=== PATIENT | female | born 1990 | race Two or more races ===

== ENCOUNTER 2016-03-31 16:50 | Emergency (ER) | payer OTHER ==
[2016-03-31 17:00] VITALS: RESP 16; TEMP 98.2
[2016-03-31] MEDS ORDERED: ONDANSETRON 4 MG/2 ML VIAL IVP ONE (17:02)
[2016-03-31] MEDS ORDERED: FAMOTIDINE 20 MG/NACL 50 ML IV ONE (17:11)
--- NOTE | 2016-03-31 17:15 | EDPHY ---
H & P Time Seen by Provider: 03/31/16 16:56 HPI/ROS: CHIEF COMPLAINT: Hives, syncope, vomiting HISTORY OF PRESENT ILLNESS: 25-year-old female presents to the emergency department by private vehicle complaining of pruritic rash and having a syncopal episode. The patient states around 330 this afternoon she developed a diffuse pruritic rash that she describes as hives. She noted that the rash was extremely itchy. She took 25 mg of Benadryl p. o. and 1 Zyrtec shortly afterwards and had a syncopal episode. Her roommate was present who did not witness any seizure activity. When the patient came to she felt very nauseous and vomited. She still feels slightly nauseous. Denies dysphagia. There is no reported trauma or fall. No reports of head injury. No neck or back pain. No chest pain or difficulty breathing. She does note that the rash is not nearly as itchy since taking the Benadryl and Zyrtec. She states that she did have shrimp for lunch around 1:00 p.m. and has never had a probable shellfish in the past. She cannot think of any other known exposure. She does not take any prescribed medication. Last menstrual period was 2 weeks ago. REVIEW OF SYSTEMS: Constitutional: No fever, no chills. Eyes: No double or blurry vision. ENT: No sore throat. Respiratory: No cough, no shortness of breath. Cardiac: No chest pain. Gastrointestinal: Nausea, vomiting. No abdominal pain or diarrhea. Genitourinary: No dysuria. Musculoskeletal: No neck or back pain. Skin: Pruritic rash as above Neurological: No headache. Past Medical/Surgical History: Negative Social History: student support advisor at [employer] Smoking Status: Never smoked Physical Exam: General Appearance: Alert, no distress. 36.8, 96% on room air. No apparent distress. 136/75 Eyes: Pupils equal and round. Extraocular motions are all intact. ENT: Mouth: Mucous membranes moist. No posterior pharyngeal injection or swelling noted. No uvular swelling. No muffled voice. Respiratory: No wheezing, rhonchi, or rales, lungs are clear to auscultation. Cardiovascular: Regular rate and rhythm. Gastrointestinal: Abdomen is soft and nontender, no masses, no rebound or guarding, bowel sounds normal. Neurological: Alert and oriented x 3, cranial nerves II through XII grossly intact Skin: Diffuse erythematous macular papular rash noted diffusely to upper extremities, lower extremities, chest, abdomen, back. Swelling noted to the helix of both ears. Musculoskeletal: Nontender to palpate along the cervical, thoracic or lumbar spine. Neck is supple. Extremities: Full range of motion and no peripheral edema. Psychiatric: Patient is oriented X 3, there is no agitation. Constitutional: Initial Vital Signs Temperature (C) 36.8 C 03/31/16 16:57 Heart Rate 75 03/31/16 16:57 Respiratory Rate 16 03/31/16 16:57 Blood Pressure 136/75 H 03/31/16 16:57 O2 Sat (%) 96 03/31/16 16:57 O2 Delivery Mode Room Air Allergies/Adverse Reactions: No Known Allergies Allergy (Unverified 03/31/16 16:57) Home Medications: Medication Instructions Recorded Bcp 03/31/16 EPINEPHRINE [EPIPEN] 0.3 mg SC DAILY #2 03/31/16 Valacyclovir 03/31/16 predniSONE 60 mg PO DAILY 3 Days 03/31/16 Medical Decision Making - Diagnostics EKG Interpretation: EKG reveals normal sinus rhythm. This was reviewed by Dr. Valdes. See interpretation in trace master. ED Course/Re-evaluation: 25-year-old female presents to the emergency department after developing pruritic rash, having a syncopal episode and then vomiting. Patient still feels slightly nauseous. She had an IV established and was given 25 mg of IV Benadryl, 20 mg of IV Pepcid, and 4 mg of Zofran IV. She was also given IV normal saline. Laboratory studies were within normal limits. EKG was unremarkable. The patient does not have any acute respiratory distress. She has no airway involvement. I do not think epinephrine is indicated. The patient was observed in the emergency department over the next 2 hours. Her rash had completely resolved. The swelling around the helix of both ears have improved. The patient is feeling comfortable being discharged home. She was given prednisone p. o. in the emergency department and prescription to fill for additional prednisone. She was also sent home with EpiPen. She was encouraged to follow up with primary care provider to discuss follow up with staff certified nurse midwife. Differential Diagnosis: Syncope including but not limited to vasovagal syncope, arrhythmia, dehydration , and blood loss. - Data Points Laboratory Results: Laboratory Results 03/31/16 17:10 03/31/16 17:10 03/31/16 17:10 WBC 10.81 H 10^3/uL (3.80-9.50) RBC 5.35 H 10^6/uL (4.18-5.33) Hgb 17.2 H g/dL (12.6-16.3) Hct 49.3 H % (38.0-47.0) MCV 92.1 fL (81.5-99.8) MCH 32.1 pg (27.9-34.1) MCHC 34.9 g/dL (32.4-36.7) RDW 12.2 % (11.5-15.2) Plt Count 357 10^3/uL (150-400) MPV 11.3 fL (8.7-11.7) Neut % (Auto) 63.1 % (39.3-74.2) Lymph % (Auto) 29.2 % (15.0-45.0) [place] % (Auto) 6.4 % (4.5-13.0) Eos % (Auto) 0.6 % (0.6-7.6) Baso % (Auto) 0.4 % (0.3-1.7) Nucleat RBC Rel Count 0.0 % (0.0-0.2) Absolute Neuts (auto) 6.83 H 10^3/uL (1.70-6.50) Absolute Lymphs (auto) 3.16 H 10^3/uL (1.00-3.00) Absolute Monos (auto) 0.69 10^3/uL (0.30-0.80) Absolute Eos (auto) 0.06 10^3/uL (0.03-0.40) Absolute Basos (auto) 0.04 10^3/uL (0.02-0.10) Absolute Nucleated RBC 0.00 10^3/uL (0-0.01) Immature Gran % 0.3 % (0.0-1.1) Immature Gran # 0.03 10^3/uL (0.00-0.10) Sodium 140 mEq/L (134-144) Potassium 4.5 mEq/L (3.5-5.2) Chloride 104 mEq/L (97-110) Carbon Dioxide 23 mEq/l (22-31) Anion Gap 13 mEq/L (8-16) BUN 15 mg/dL (7-23) Creatinine 0.8 mg/dL (0.6-1.0) Estimated GFR > 60 Glucose 122 H mg/dL (70-100) Calcium 9.7 mg/dL (8.5-10.4) Beta HCG, Qual NEGATIVE Medications Given: Discontinued Medications Diphenhydramine HCl (Benadryl Injection) 25 mg IVP EDNOW ONE Stop: 03/31/16 17:03 Last Admin: 03/31/16 17:19 Dose: 25 mg Famotidine/Sodium Chloride (Pepcid 20 Mg (Premix)) 50 mls @ 200 mls/hr IV EDNOW ONE Stop: 03/31/16 17:25 Last Admin: 03/31/16 17:44 Dose: 50 mls Ondansetron HCl (Zofran) 4 mg IVP EDNOW ONE Stop: 03/31/16 17:03 Last Admin: 03/31/16 17:19 Dose: 4 mg Prednisone (Prednisone) 60 mg PO EDNOW ONE Stop: 03/31/16 18:57 Last Admin: 03/31/16 19:03 Dose: 60 mg Departure - Departure Disposition: Home, Routine, Self-Care Clinical Impression: Urticaria Syncope Qualifiers: Syncope type: unspecified Qualifier Code: (R55) Syncope and collapse Vomiting Qualifiers: Vomiting type: unspecified Vomiting Intractability: non-intractable Nausea presence: with nausea Qualifier Code: (R11.2) Nausea with vomiting, unspecified Instructions: Urticaria (ED), Syncope (ED), Acute Nausea and Vomiting (ED) Additional Instructions: You may continue Benadryl 50 mg every 6 hours as needed for itching, caution drowsiness. Pepcid 20 mg twice daily for itching as well. Prednisone daily for 3 days. Return to the emergency department if you develop difficulty breathing , difficulty swallowing, or if you feel worse in any way. Referrals: Giovanna Nails MD [Primary Care Provider] - As per Instructions Prescriptions: EPINEPHRINE [EPIPEN] 0.3 mg SC DAILY #2 predniSONE 60 mg PO DAILY 3 Days
--- NOTE | 2016-03-31 17:27 | CPEKG ---
Heart Rate: 57 RR Interval: 1053 P-R Interval: 136 QRSD Interval: 72 QT Interval: 468 QTC Interval: 456 P [place]: 53 QRS [place]: 73 T Wave [place]: 25 EKG Severity - NORMAL ECG - EKG Impression: SINUS RHYTHM Electronically Signed By: Bernard Valdes 31-Mar-2016 18:03:55
[2016-03-31 17:33] LABS: % IMMATURE GRANULYOCYTES 0.3 % (0.0-1.1); ABSOLUTE IMMATURE GRANULOCYTES 0.03 10^3/uL (0.00-0.10); ADD DIFF? NO; ADD MORPH? NO; ADD SCAN? NO; ATYPICAL LYMPHOCYTE FLAG 0 (0-99); FRAGMENT RBC FLAG 0 (0-99); HEMATOCRIT 49.3 % (38.0-47.0); HEMOGLOBIN 17.2 g/dL (12.6-16.3); LEFT SHIFT FLG 0 (0-99); LIPEMIA HEMOLYSIS FLAG 90 (0-99); MEAN CELL HEMOGLOBIN 32.1 pg (27.9-34.1); MEAN CELL HEMOGLOBIN CONCENTR. 34.9 g/dL (32.4-36.7); MEAN CELL VOLUME 92.1 fL (81.5-99.8); MEAN PLATELET VOLUME 11.3 fL (8.7-11.7); PLATELET CLUMPS FLAG 20 (0-99); PLATELET COUNT 357 10^3/uL (150-400); RED BLOOD CELL COUNT 5.35 10^6/uL (4.18-5.33); RED CELL DISTRIBUTION WIDTH 12.2 % (11.5-15.2)
[2016-03-31 18:04] LABS: ANION GAP 13 mEq/L (8-16); CALCIUM 9.7 mg/dL (8.5-10.4); CARBON DIOXIDE 23 mEq/l (22-31); CHLORIDE 104 mEq/L (97-110); CREATININE 0.8 mg/dL (0.6-1.0); GLOMERULAR FILTRATION RATE > 60; GLUCOSE 122 mg/dL (70-100); POTASSIUM 4.5 mEq/L (3.5-5.2); SODIUM 140 mEq/L (134-144)
[2016-03-31] MEDS ORDERED: predniSONE 20 MG TAB PO ONE (18:56)
[2016-03-31 19:27] VITALS: BP 115/67; PULSE 79; O2SAT 99
== END 2016-03-31 19:26 | disposition home or self-care (01) ==
DX: L50.9 Urticaria, unspecified (principal); R55 Syncope and collapse; R11.2 Nausea with vomiting, unspecified
CPT/HCPCS: 96374; J2405